=== PATIENT | female | born 1930 | race Caucasian/White ===

== ENCOUNTER 2016-04-26 10:18 | Emergency (ER) | payer MEDICARE ==
[~2016-04-26] VITALS: Ht 165.1 cm; Wt 63.5 kg
[~2016-04-26 10:18] MED LIST: ACETAMIN-CODE12.5 ML PO; ADULT LOW DOSE81 MG PO; AMOXICILLIN 50500 MG PO; ASPIRIN 81MG TA81 MG PO; ASPIRIN EC325 MG PO; ATENOLOL50 MG PO; BISACODYL5 MG PO; CARVEDILOL 1212.5 MG PO; CEFDINIR 300MG300 MG PO; CEFDINIR300 MG PO; CIPRO 500MG TA500 MG PO; CLOPIDOGREL75 M1 PO; COREG 6.25MG6.25 MG PO; CORICIDIN COUGH1 TAB PO; CYANOCOBAL1000 MCG/M IM; DIOVAN160 MG PO; DIOVAN320 MG PO; ERYTHROMYC3.5 GM/TUB OP; GENTLE LAXATIVE10 MG PR; HYDROCODONE-APA1 TA1 PO; IMDUR 30MG. TAB30 MG PO; IRON TABLETS325 MG PO; ISOSORBIDE MONO60 MG PO; LEVAQUIN250 MG PO; LEVAQUIN500 MG PO; LEVOTHYROXIN0.088 MG PO; LIPITOR40 M1 PO; LIPITOR80 MG PO; LOSARTAN POTAS100 MG PO; LOVENOX 6060 MG/0.6 SC; MACROBID 100MG100 M1 PO; MECLIZINE HYDRO25 MG PO; MELOXICAM15 MG PO; METFORMIN ER500 M1 PO; METFORMIN ER500 MG PO; METFORMIN HYDR500 M1 PO; METFORMIN500 MG PO; MIRALAX17 GM/PACK PO; Meclizine25 MG PO; NORCO 325 MG-51 TAB PO; OMNICEF 300 MG300 MG PO; OXTELLAR XR150 MG PO; OXYBUTYNIN5 MG PO; Oxybutynin5 MG PO; SKELAXIN800 MG PO; TYLENOL ARTHRI650 MG PO; UNITHROID0.088 MG PO; VICODIN 5/500 T1 TAB PO; VITAMIN D1000 IU PO; ZYRTEC10 M2 PO
--- NOTE | 2016-04-26 11:06 | RADIOLOGY REPORT PS360 ---
CT CERVICAL SPINE W/O CONT INDICATION: Neck pain following injury FALL ORDERING PHYSICIAN: PATIENT AGE: 85 years COMPARISON: None TECHNIQUE: Axial images are obtained without contrast. Sagittal and coronal reformatted images are reviewed as well. FINDINGS: No obvious fracture or dislocation is evident. There is severe multilevel spondylosis and facet arthrosis of the cervical spine with cervical thoracic curvature convex left. C1-C2: Unremarkable. C2-C3: Unremarkable. C3-C4: Degenerative disc disease with facet arthritic change and hypertrophy with severe left lateral recess and foraminal narrowing. Posterior central and left paracentral osteophyte. 3 mm anterolisthesis C3 on 4. C4-C5: Degenerative disc disease with 3 mm anterolisthesis of C4 with prominent anterior osteophyte C5-C6: Severe degenerative disc disease with endplate osteophytes with canal stenosis and bilateral foraminal and lateral recess narrowing greater on the right. C6-C7: Severe degenerative disc disease with endplate osteophytes along with facet and ligamentum hypertrophy with severe canal stenosis and bilateral lateral recess and foraminal narrowing. C7-T1: Degenerative disc disease. The apices are clear. IMPRESSION: 1. No acute fracture. 2. Severe cervical spondylosis and facet arthritic change with canal stenosis and foraminal narrowing as detailed in each level above
--- NOTE | 2016-04-26 11:06 | RADIOLOGY REPORT PS360 ---
CT HEAD W/O CONTRAST HISTORY: Headache following injury, head laceration FALL ORDERING PHYSICIAN: PATIENT AGE: 85 years COMPARISON: 05/20/2013 TECHNIQUE: Axial images obtained without contrast. Brain and bone windows reviewed. FINDINGS: No midline shift, mass effect, intracranial hemorrhage, hydrocephalus, or extra-axial fluid collection is evident. There is generalized atrophy with moderate hypoattenuation in the periventricular and subcortical region consistent with ischemic gliotic change from microvascular disease. Encephalomalacic changes are present in the right parieto-occipital junction consistent with an old infarction. No acute intracranial hemorrhage evident. No subdural or epidural hematoma evident. The calvarium has an unremarkable appearance. There is a large left supraorbital hematoma. No obvious fracture. No mastoid effusion. The visualized paranasal sinuses are unremarkable. IMPRESSION: 1. No acute intracranial pathology. 2. Prominent left supraorbital hematoma. 3. Chronic ischemic changes..
--- NOTE | 2016-04-26 11:36 | Emergency Room Report ---
History of Present Illness Time Seen by 1041 Presenting Problem in Triage Pt arrived:Ambulance Stretcher Presenting Problem:PT REPORTS FALLING THIS MORNING AROUND 0830. PT REPORTS THAT SHE WAS TRYING TO GET OUT OF HER CHAIR AND FELL FORWARD. LACERATION NOTED ABOVE L EYE. PT DENIES LOC. 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 N Clinical Suspician of Infection? N Mental Status: 1 - Regular (Normal Baseline) Sepsis Risk:Low Sepsis Risk Have you (or family members/close friends) recently traveled outside the [place]? N If Yes, where/when: Have you had exposure to infectious disease within the past month? N TB? Other? Specify: Source patient, RN notes reviewed, family, RN/MD Exam Limitations no limitations Comment This is an 85-year-old feel patient presented to the emergency room for evaluation of her head injury sustained around 8:30 AM. Patient was attempting to sit up from her chair and fell face forward, with a noticeable laceration above her LEFT eyebrow. Patient has any loss of consciousness, seizure activity, amnesia, nausea or vomiting. She has also a RIGHT knee abrasion. ALLERGIES Coded Allergies: No Known Allergies (01/14/16) Home Medications Active Scripts CLOPIDOGREL BISULFATE (Clopidogrel) 75 MG PO DAILY #30 TAB Ref 2 Prov: 08/06/13 Bisacodyl (Laxative Suppository) 10 MG NM ONCE PRN constipation #2 SUP Prov: 12/20/15 Bisacodyl (Bisacodyl 5MG TAB) 5 MG PO DAILYP PRN CONSTIPATION #24 TAB Prov: 07/14/14 Reported Medications VITAMIN B12 (Cyanocobalamin Injection) 1,000 MCG IM MONTHLY CETIRIZINE HCL (Zyrtec) 10 MG PO DAILY HYDROCODONE/ACETAMINOPHEN (Bethesda 5-325 Tablet) 1 TAB PO TID ASPIRIN (Aspirin) 81 MG PO DAILY Atorvastatin Calcium (Atorvastatin) 80 MG PO QHS Carvedilol (Coreg 6.25MG) 6.25 MG PO BID ISOSORBIDE MONONITRATE (Isosorbide Mononitrate ER) 60 MG PO DAILY Levothyroxine Sodium (Levothyroxine (88 Mcg)) 0.088 MG PO DAILY CHOLECALCIFEROL (VITAMIN D3) (Vitamin D3) 1,000 IUNITS PO DAILY METFORMIN HCL (Metformin HCl ER) 500 MG PO DAILY 90 Days History Medical History General CAD? Yes Angina: Yes NM: Yes Hypertension? Yes Hyperlipidemia? Yes CHF? No DVT? No PE? No COPD? No Asthma? No Anemia? Yes GERD? No Gastric ulcers? No GI Bleed? No Hernia? No Thyroid Problems? No Hypothyroidism? No CVA? Yes Seizures? No Diabetes? Yes Insulin Dependent: No Insulin Pump: No Home FSBS? Yes Renal Insuffiency? No End Stage Renal Disease? No UTI? Yes Stones? Yes BPH? No GB Disease: Yes Nephritic Syndrome? No Asplenia? No Hepatitis? No Sickle Cell Disease? No Arthritis? No Migraines? No Cataracts? Yes Glaucoma? No MRSA? No HIV? No TB? No Anxiety? No Depression? No Cancer? Yes Site: stomach More? No Immunization Hx DT/Tetanus Unknown Flu [id number] Pneumonia Received In Past Surgical Hx Previous Surgery?Y Orthopedic-KNEE REPLACEME GI(other) CARDIAC STENTx 2 GALL STONES REMOVED CATARACTS BOTH EYES PARTIAL STOMACH REMOVAL S/T CA KNEE REPLACEMNT Family History Family Hx Diabetes No CAD No Hypertension No Hyperlipidemia No Cancer Yes TB No Social History Smoking Hx Smoker: Never Smoker Tobacco: No Packs/day N/A Alcohol Alcohol: No Review of Systems All Other Systems Reviewed and Negative Skin lesions (laceration LEFT eyebrow), rash (abrasion RIGHT knee) Physical Exam Vital Signs Vital Signs Date Time Temp Pulse Resp B/P Pulse O2 O2 Flow FiO2 Ox Delivery Rate 04/26 1216 68 20 172/78 98 04/26 1143 68 20 172/78 98 04/26 1056 68 18 168/83 97 04/26 1022 97.6 76 18 186/82 97 General Appearance normal appearance, WD/WN, mild distress Eye Exam - bilateral eye normal exam, bilateral eye PERRL, bilateral eye EOMI Neck normal inspection, non-tender, supple, full range of motion Respiratory Status Yes: trachea midline, chest symmetrical, non tender chest. No: respiratory distress. Lung Sounds bilateral: normal breath sounds, lungs clear. Cardiovascular normal exam, regular rate/rhythm, no peripheral edema, no gallop, no JVD, no murmur, no rub, normal peripheral pulses Gastrointestinal normal bowel sounds, normal exam, non tender, soft, no organomegaly Extremities normal range of motion, normal inspection, RIGHT anterior kneepad with superficial abrasion, no laceration, tender palpation, 5 x 5 Neurologic alert, sock folder II-XII nml as tested, normal exam, oriented x 3 Mental status normal mood/affect Skin normal color, warm/dry, LEFT forehead vertical laceration 4 cm long, subcutaneous with surrounding hematoma. RIGHT anterior knee, adjacent to the patella, with abrasion, tender palpation, no laceration seen Medical Decision Making LABS/Meds/Orders Pt receiving controlled substance in ED? No Comment Patient advised to keep wound clean and dry, change dressing daily, follow-up with PCP in 10 days for suture removal. For pain she will take Tylenol only. Results/Orders Current Medication Orders Sig/Yfn Start time Last Medication Dose Route Stop Time Status Admin Lidocaine HCl 0 .STK-MED ONE 04/26 1113 DC .ROUTE Lidocaine HCl 0 .STK-MED ONE 04/26 1111 DC IJ Orders Procedure Date/time Status DIET-NOTHING BY MOUTH 04/[address] HEAD REQ 04/26 1021 Complete XRAY/CT/US XRAY/CT/US CT head CT interpretation by discussed w/radiologist CT Results normal/NAD, no fracture seen Comment No acute intracranial hemorrhage Procedures Laceration/Wound Repair Laceration/Wound Repair Risks/benefits discussed with pt/guardian? Yes Tetanus status not up to date Wound Location forehead Wound Length (cm) 4.00 Wound's Depth, Shape sucutaneous tissue Wound Explored no FB identified Risk of retained FB explained to pt/guardian? Yes Irrigated w/ Saline (ccs) 25 Wound Prep Betadine, Saline Anesthesia 1% Lidocaine, Local Volume Anesthetic (ccs) 25 Wound Debrided none Wound Repaired With sutures Suture Size/Type 4:0, Ethilon Total Number Sutures 12 Sterile Dressing Applied Yes Departure Departure Time of Disposition 1131 Disposition DC Home or Self Care(routine) Clinical Impression Primary Impression: Forehead laceration Qualifiers: Encounter type: initial encounter Qualified Code: S01.81XA - Laceration without foreign body of other part of head, initial encounter Secondary Impressions: Cervical sprain Qualifiers: Encounter type: initial encounter Qualified Code: S13.9XXA - Sprain of joints and ligaments of unspecified parts of neck, initial encounter Fall Qualifiers: Encounter type: initial encounter Qualified Code: W19.XXXA - Unspecified fall, initial encounter Traumatic hematoma of forehead Qualifiers: Encounter type: initial encounter Qualified Code: S00.83XA - Contusion of other part of head, initial encounter Condition STABLE Referrals Sampson Pedraza MD (Family) in 10 Patient Instructions DI for Hematoma (Bruise), DI for Open Laceration, How to Prevent Falls Additional Instructions Please take Tylenol as needed for pain, change dressing daily, keep wound clean and dry, follow-up with Dr. Pedraza in 10 days for suture removal from the laceration area above your LEFT eyebrow. Discharge Counseling Counseled pt/family regarding diagnosis, test results, medications/RX, home care, follow up needs Comment Please take Tylenol as needed for pain, change dressing daily, keep wound clean and dry, follow-up with Dr. Pedraza in 10 days for suture removal from the laceration area above your LEFT eyebrow. ED Critical Care Critical Care No at [id number]
[2016-04-26 12:16] VITALS: BP 172/78
== END 2016-04-26 12:17 | disposition home or self-care (01) ==
LOC: ER 10:18
PROC: 0HQ1XZZ Repair Face Skin, External Approach (ICD-10-PCS; principal; 2016-04-26)
DX: S01.81XA Laceration without foreign body of other part of head, initial encounter (principal); S13.9XXA Sprain of joints and ligaments of unspecified parts of neck, initial encounter; S00.83XA Contusion of other part of head, initial encounter; W05.0XXA Fall from non-moving wheelchair, initial encounter; E11.9 Type 2 diabetes mellitus without complications; I25.2 Old myocardial infarction; I25.10 Atherosclerotic heart disease of native coronary artery without angina pectoris; I10 Essential (primary) hypertension; E78.5 Hyperlipidemia, unspecified

== ENCOUNTER 2016-11-05 13:21 | Day surgery (SDC) | payer MEDICARE ==
[~2016-11-05] VITALS: Ht 165.1 cm; Wt 63.5 kg
[~2016-11-05 13:21] MED LIST changes: +GABAPENTIN100 M1 PO; +TYLENOL WITH CO1 TA1 PO
[2016-11-05 13:26] VITALS: BP 104/79
[2016-11-05 14:24] VITALS: BP 104/79
[2016-11-05 14:25] VITALS: BP 161/88
[2016-11-05 14:37] VITALS: BP 124/59
--- NOTE | 2016-11-05 14:37 | Procedure Note ---
Procedure detail Date of procedure: 11/05/16 Anesthesiologist: Oliver Bartlett M.D. Complications: None Pre-procedure diagnosis: Degenerative disc disease lumbar spine multiple levels with lumbar spinal stenosis and lumbar radiculopathy symptoms, lumbar spondylosis, lumbar facet arthropathy Post-procedure diagnosis: Same Indications for procedure: This patient is a pleasant 86-year-old white female who we are seeing for low back pain. She is on anticoagulants. She has been off for 7 days. We are approved for medial branch blocks/facet joint injections of L4-L5 and L5-S1. Patient has tried previous what sounds to be lumbar epidural steroid injections along with physical therapy with no relief. She has increasing back pain. We will do these lumbar medial branch blocks/facet joint injections of L4-L5 and L5 -S1 to see if this will give her some relief. Procedure detail: Risks, Benefits, Alternatives were reviewed, all questions were answered appropriately, informed consent was obtained both written and verbal prior to the procedure. The patient was escorted to the procedure room and placed in the prone position. A pre-procedure time out was conducted verifying patient name, site, and side of the procedure as well as any contraindications which there were none. The area of the lumbar spine was prepped with ChloraPrep and draped in usual sterile fashion. Fluoroscopy was used to identify the landmarks including the L4-L5 and L5-S1 facet joints/medial branches. A 22 gauge needle was then passed atraumatically into these facet joints using intermittent fluoroscopy of L4-L5 and L5-S1 facet joint/medial branches bilaterally. Needle placement was confirmed with dye. After this we injected bupivacaine 0.25 percent 3 mL and Depo-Medrol 10 mg into each facet joint/medial branch of L4-L5 and L5-S1 bilaterally. Patient tolerated the procedure well with no complication. We used a total of 40 mg Depo-Medrol for both levels, bilaterally. Plan and disposition: We will follow-up with this patient in the pain clinic in 2 weeks. We will reevaluate her symptoms at that time.
== END 2016-11-05 14:54 | disposition home or self-care (01) ==
LOC: PM 13:21
PROC: 3E0T3BZ Introduction of Anesthetic Agent into Peripheral Nerves and Plexi, Percutaneous Approach (ICD-10-PCS; principal; 2016-11-05)
PROC: 3E0T33Z Introduction of Anti-inflammatory into Peripheral Nerves and Plexi, Percutaneous Approach (ICD-10-PCS; 2016-11-05)
PROC: BR161ZZ Fluoroscopy of Lumbar Facet Joint(s) using Low Osmolar Contrast (ICD-10-PCS; 2016-11-05)
DX: M51.16 Intervertebral disc disorders with radiculopathy, lumbar region (principal); M48.06 Spinal stenosis, lumbar region; M47.896 Other spondylosis, lumbar region
CPT/HCPCS: J1030; Q9966

== ENCOUNTER 2017-02-25 10:22 | Day surgery (SDC) | payer MEDICARE ==
[~2017-02-25] VITALS: Ht 165.1 cm; Wt 67.1 kg
[2017-02-25 10:24] VITALS: BP 123/57
[2017-02-25 11:02] VITALS: BP 123/57
--- NOTE | 2017-02-25 11:10 | Procedure Note ---
Procedure detail Date of procedure: 02/25/17 Anesthesiologist: Kerwin Najera Complications: None Pre-procedure diagnosis: Degenerative disc disease lumbar spine multiple levels. Multilevel lumbar facet arthropathy. Lumbar spondylosis. Post-procedure diagnosis: Same. Indications for procedure: Very pleasant 86-year-old white female that presents our procedure clinic today for medial branch block lumbar spine L3-4, L4-5, L5-S1 bilaterally. Patient has responded extremely well to lumbar medial branch block in the past. She describes her low back pain as constant, dull, aching. Procedure detail: Informed consent was obtained and the risk and benefits of the procedure was explained to the patient. Patient was taken to the procedure room where noninvasive monitors were placed, including noninvasive blood pressure cuff as well as pulse oximeter. The area over the lumbar spine was cleansed using chlorhexidine as a cleansing solution. I anesthetized the skin and subcutaneous tissues with 1% Lidocaine. I placed 22-gauge spinal needles into the facet joint / medial branches of [L3-L4, L4-L5, and L5-S1] bilaterally. Needle placement was confirmed with fluoroscopy. After confirmation of needle placement, each site was injected with 1 mL of 1% lidocaine and 0.25 % Marcaine and 10 mg of Depo- Medrol. A total of 80 mg of depo medrol was used for bilateral medial branch blocks of [L3-L4, L4-L5, and L5-S1] bilaterally. Patient tolerated the procedure without difficulty. There were no complications. Plan and disposition: Patient was reevaluated 10 minutes post procedure. She is doing very well. She returns to us in pain clinic for further evaluation. at [id number]
[2017-02-25 11:44] VITALS: BP 126/97
== END 2017-02-25 11:45 | disposition home or self-care (01) ==
LOC: PM 10:22
PROC: 3E0T3BZ Introduction of Anesthetic Agent into Peripheral Nerves and Plexi, Percutaneous Approach (ICD-10-PCS; principal; 2017-02-25)
PROC: 3E0T33Z Introduction of Anti-inflammatory into Peripheral Nerves and Plexi, Percutaneous Approach (ICD-10-PCS; 2017-02-25)
PROC: BR161ZZ Fluoroscopy of Lumbar Facet Joint(s) using Low Osmolar Contrast (ICD-10-PCS; 2017-02-25)
DX: M51.36 Other intervertebral disc degeneration, lumbar region (principal); M54.06 Panniculitis affecting regions of neck and back, lumbar region; M47.896 Other spondylosis, lumbar region
CPT/HCPCS: J1040